=== PATIENT | female | born 1935 | race Two or more races ===

== ENCOUNTER 2020-08-07 02:31 | Inpatient (IN) | payer OTHER ==
[~2020-08-07] VITALS: Ht 157.5 cm; Wt 85.0 kg
[2020-08-07] MEDS ORDERED: dilTIAZem 25 MG/5 ML VIAL IV ONE (02:45)
[2020-08-07 03:19] LABS: Basophils # (auto) 0 10 ^3/uL (0-0.2); Basophils % (auto) 0.3 % (0.0-2.0); Eosinophils # (auto) 0.3 10 ^3/uL (0-0.8); Eosinophils % (auto) 2.9 % (0.0-7.0); Hematocrit 47.2 % (36.0-46.0); Lymphocytes # (auto) 2.2 10 ^3/uL (0.4-5.4); Lymphocytes % (auto) 25.4 % (10.0-50.0); Mean Corpuscular Hgb Conc. 33.8 g/dL (32.0-36.0); Mean Corpuscular Volume 88.6 fL (80.0-100.0); Monocytes # (auto) 0.7 10 ^3/uL (0-1.3); Monocytes % (auto) 7.5 % (0.0-12.0); Neutrophils # (auto) 5.5 10 ^3/uL (1.6-8.6); Neutrophils % (auto) 63.9 % (37.0-80.0); Nucleated Red Blood Cells % 0.4 %; Platelet Count (auto) 204 10^3/uL (140-450); Red Blood Cells 5.33 10^6/uL (4.0-5.20); Red Cell Distribution Width 13.6 % (11.8-14.3); White Blood Cell 8.6 10^3/uL (4.4-10.8)
[2020-08-07 03:35] LABS: Albumin 3.5 g/dL (3.4-5.0); Calcium 8.9 mg/dL (8.5-10.1); Potassium 3.6 mmol/L (3.5-5.1)
[2020-08-07 03:41] LABS: BUN/Creatinine Ratio 33.3; Bilirubin, Total 0.7 mg/dL (0.2-1.0); Total Protein 6.4 g/dL (6.4-8.2)
[2020-08-07 03:43] LABS: INR 1.13 (0.9-1.15); Partial Thromboplastin Time 28.3 sec (23.0-31.2)
[2020-08-07] MEDS ORDERED: ACETAMINOPHEN 325 MG TAB PO ONE (04:00)
[2020-08-07] MEDS ORDERED: SUCRALFATE 1 GM/10 ML ORAL SUSP PO ONE (04:00)
[2020-08-07] MEDS ORDERED: ENOXAPARIN SOD 100 MG/1 ML SYRINGE SC ONE (07:30)
[2020-08-07] MEDS ORDERED: FUROSEMIDE 20 MG/2 ML VIAL IV ONE (08:30)
[2020-08-07] MEDS ORDERED: ADENOSINE 65 MG in GIVE UN-DILUTED 0 ML IV STA (08:42)
[2020-08-07] MEDS ORDERED: POTASSIUM EFFERVESENT TAB 25 MEQ PO ONE (08:45)
[2020-08-07 09:11] LABS: Magnesium 1.9 mg/dL (1.6-2.6)
[2020-08-07] MEDS ORDERED: DEXTROSE (50%) 50ML SYRG IV PRN ×2 (10:30→12:00)
[2020-08-07] MEDS ORDERED: ACETAMINOPHEN 500 MG TAB PO PRN (10:30)
[2020-08-07] MEDS ORDERED: HYDROcodone-ACET 5/325MG TAB PO PRN (10:30)
[2020-08-07] MEDS ORDERED: MORPHINE SULF INJ 2 MG/ML SYRINGE 1ML IV PRN ×2 (10:30)
[2020-08-07] MEDS ORDERED: ACCU-CHEK COMFORT CURVE STRIP VI SCH (11:30)
[2020-08-07] MEDS ORDERED: InsuLIN REG 1unit/0.01ml Soln (100units/ml) SC SCH (11:30)
[2020-08-07] MEDS ORDERED: DIGOXIN (250MCG/ML) 2 ML AMPULE IV ONE (11:45)
[2020-08-07] MEDS ORDERED: MAGNESIUM SULFATE 1GM/100ML 100 ML IV ONE (13:45)
[2020-08-07] MEDS ORDERED: AMIODARONE HCL 200 MG TAB PO ONE (13:45)
[2020-08-07 14:00] VITALS: BP 125/61
[2020-08-07] MEDS: metroNIDAZOLE 500 MG TAB PO SCH ×2 (15:08→21:20)
[2020-08-07 15:39] VITALS: BP 125/61
[2020-08-07 16:56] VITALS: BP 122/60
[2020-08-07] MEDS: ACCU-CHEK COMFORT CURVE STRIP VI SCH ×2 (17:51→22:04)
[2020-08-07] MEDS: InsuLIN REG 1unit/0.01ml Soln (100units/ml) SC SCH ×2 (17:59→22:03)
[2020-08-07] MEDS: AMIODARONE HCL 200 MG TAB PO SCH (21:20)
[2020-08-07] MEDS: METOPROLOL TARTRATE 50 MG TAB PO SCH (21:35)
[2020-08-07 22:00] VITALS: BP 144/64
[2020-08-08] MEDS ORDERED: INS7030I SC ×2 (02:51)
[2020-08-08] MEDS ORDERED: CLOP75TA70 PO (02:51)
[2020-08-08] MEDS ORDERED: CILO100T PO (02:51)
[2020-08-08] MEDS ORDERED: ISOS60TA24 PO (02:51)
[2020-08-08] MEDS ORDERED: METO-158 PO (02:51)
[2020-08-08] MEDS ORDERED: LISI-716 PO (02:51)
[2020-08-08] MEDS ORDERED: CEFP200T15 PO (02:51)
[2020-08-08] MEDS ORDERED: NITR1SPR SL (02:51)
[2020-08-08] MEDS ORDERED: ASPI-543 PO (02:51)
[2020-08-08 04:40] LABS: Urine Bacteria FEW /hpf (None Seen); Urine Blood 3+ /uL (Negative); Urine Mucus FEW (None Seen); Urine Specific Gravity 1.017 (1.001-1.035); Urine WBC 36 /hpf (0 - 5)
[2020-08-08] MEDS ORDERED: ONDA-144 PO (04:55)
[2020-08-08 05:00] VITALS: BP 154/56
[2020-08-08] MEDS: metroNIDAZOLE 500 MG TAB PO SCH ×3 (05:28→22:07)
[2020-08-08] MEDS: ACCU-CHEK COMFORT CURVE STRIP VI SCH ×4 (06:41→22:00)
[2020-08-08] MEDS: InsuLIN REG 1unit/0.01ml Soln (100units/ml) SC SCH ×4 (06:41→22:00)
[2020-08-08 08:30] VITALS: BP 143/60
[2020-08-08] MEDS: RAMIPRIL 10 MG CAP PO SCH (09:50)
[2020-08-08] MEDS: AMIODARONE HCL 200 MG TAB PO SCH ×2 (09:51→22:07)
[2020-08-08] MEDS: ASPirin-EC 81 mg tab PO SCH (09:51)
[2020-08-08] MEDS: FUROSEMIDE 40 MG TAB PO SCH (09:52)
[2020-08-08] MEDS: CLOPIDOGREL BISULFATE 75 MG TAB PO SCH (09:53)
[2020-08-08] MEDS: METOPROLOL TARTRATE 50 MG TAB PO SCH ×2 (09:53→22:00)
[2020-08-08] MEDS ORDERED: FAMOTIDINE 20 MG TAB PO SCH (10:00)
[2020-08-08] MEDS ORDERED: cefTRIAXone 1GM/50ML D5W 50 ML IV ONE (11:30)
[2020-08-08] MEDS ORDERED: PANTOPRAZOLE 40 MG/10 ML VIAL INJ IV ONE (12:00)
[2020-08-08 12:30] VITALS: BP 135/56
[2020-08-08 17:00] VITALS: BP 139/83
[2020-08-08] MEDS: SUCRALFATE 1 GM/10 ML ORAL SUSP GT SCH ×2 (17:43→22:07)
[2020-08-08] MEDS: ONDANSETRON HCL 4 MG/2 ML VIAL IV PRN (20:18)
[2020-08-08 22:00] VITALS: BP 142/62
[2020-08-08] MEDS: INSULIN 70/30 1unit/0.01ml Susp (100units/ml) SC SCH (22:00)
[2020-08-08] MEDS ORDERED: FAMOTIDINE (10MG/ML) 2ML VL IV SCH (22:00)
[2020-08-08] MEDS ORDERED: LOPERAMIDE 1 mg/7.5ml ORAL soln PO PRN (23:30)
[2020-08-08] MEDS: LOPERAMIDE HCL 2 MG CAP PO PRN (23:50)
[2020-08-09] VITALS (16 sets, daily range): BP systolic 136–178; BP diastolic 41–62
[2020-08-09] MEDS: LOPERAMIDE HCL 2 MG CAP PO PRN (01:50)
[2020-08-09] MEDS: metroNIDAZOLE 500 MG TAB PO SCH (06:00)
[2020-08-09] MEDS: InsuLIN REG 1unit/0.01ml Soln (100units/ml) SC SCH ×4 (06:32→22:00)
[2020-08-09] MEDS: ACCU-CHEK COMFORT CURVE STRIP VI SCH ×4 (06:32→22:15)
[2020-08-09] MEDS: SUCRALFATE 1 GM/10 ML ORAL SUSP GT SCH ×2 (06:32→11:30)
[2020-08-09] MEDS: METOPROLOL TARTRATE 50 MG TAB PO SCH ×2 (09:28→22:13)
[2020-08-09] MEDS: CLOPIDOGREL BISULFATE 75 MG TAB PO SCH (09:28)
[2020-08-09] MEDS: AMIODARONE HCL 200 MG TAB PO SCH ×2 (09:28→22:13)
[2020-08-09] MEDS: ASPirin-EC 81 mg tab PO SCH (09:29)
[2020-08-09] MEDS: PANTOPRAZOLE 40 MG/10 ML VIAL INJ IV SCH (09:29)
[2020-08-09] MEDS: cefTRIAXone 1GM/50ML D5W 50 ML IV SCH (09:30)
[2020-08-09] MEDS: RAMIPRIL 10 MG CAP PO SCH (09:30)
[2020-08-09] MEDS: FUROSEMIDE 40 MG TAB PO SCH (09:30)
[2020-08-09] MEDS: INSULIN 70/30 1unit/0.01ml Susp (100units/ml) SC SCH ×2 (09:31→22:00)
[2020-08-09] MEDS ORDERED: LIDOCAINE 2%HCL (LOCAL ANESTH.) INJ 20ML MDV ONE ×2 (15:21→15:45)
[2020-08-09] MEDS ORDERED: ANGIOMAX 250 MG VIAL IV ONE ×3 (15:22→18:39)
[2020-08-09] MEDS ORDERED: MIDAZOLAM HCL 1MG/1ML-2 ML VIAL ONE ×2 (15:22→18:22)
[2020-08-09] MEDS ORDERED: SODIUM CHL 0.9% 50 ML ONE ×3 (15:22→18:39)
[2020-08-09] MEDS ORDERED: fentaNYL CITRATE 100 MCG/2 ML VL ONE (15:22)
[2020-08-09] MEDS ORDERED: ATROPINE SULF 1 MG/10ml SYR ONE (16:22)
[2020-08-09] MEDS ORDERED: IODIXANOL 320MG/ML 100ML BTL IV ONE ×2 (16:26→18:03)
[2020-08-09] MEDS: ATORVASTATIN 20 MG TAB PO SCH (22:14)
[2020-08-10] VITALS (33 sets, daily range): BP systolic 99–154; BP diastolic 35–67
[2020-08-10] MEDS: NITROGLYCERIN 0.4 MG SL TAB SL PRN ×2 (02:23→02:29)
[2020-08-10] MEDS: ONDANSETRON HCL 4 MG/2 ML VIAL IV PRN ×2 (02:50→15:27)
[2020-08-10 05:05] LABS: Basophils # (auto) 0 10 ^3/uL (0-0.2); Basophils % (auto) 0.3 % (0.0-2.0); Eosinophils # (auto) 0 10 ^3/uL (0-0.8); Eosinophils % (auto) 0.1 % (0.0-7.0); Hematocrit 42.8 % (36.0-46.0); Hemoglobin 14.6 g/dL (12.2-16.2); Lymphocytes # (auto) 0.9 10 ^3/uL (0.4-5.4); Lymphocytes % (auto) 7.8 % (10.0-50.0); Mean Corpuscular Hemoglobin 30.1 pg (28.0-32.0); Mean Corpuscular Volume 88.6 fL (80.0-100.0); Monocytes # (auto) 0.6 10 ^3/uL (0-1.3); Monocytes % (auto) 5.5 % (0.0-12.0); Neutrophils # (auto) 9.6 10 ^3/uL (1.6-8.6); Neutrophils % (auto) 86.3 % (37.0-80.0); Platelet Count (auto) 182 10^3/uL (140-450); Red Blood Cells 4.83 10^6/uL (4.0-5.20); Red Cell Distribution Width 13.9 % (11.8-14.3); White Blood Cell 11.1 10^3/uL (4.4-10.8)
[2020-08-10 05:25] LABS: Calcium 8.7 mg/dL (8.5-10.1)
[2020-08-10 05:29] LABS: BUN/Creatinine Ratio 48.5
[2020-08-10] MEDS: metroNIDAZOLE 500 MG TAB PO SCH ×3 (06:24→22:29)
[2020-08-10] MEDS: ACCU-CHEK COMFORT CURVE STRIP VI SCH ×4 (06:25→22:30)
[2020-08-10] MEDS: SUCRALFATE 1 GM/10 ML ORAL SUSP GT SCH ×4 (06:25→22:28)
[2020-08-10] MEDS: InsuLIN REG 1unit/0.01ml Soln (100units/ml) SC SCH ×4 (06:28→22:26)
[2020-08-10] MEDS: cefTRIAXone 1GM/50ML D5W 50 ML IV SCH (09:40)
[2020-08-10] MEDS: RAMIPRIL 10 MG CAP PO SCH (09:51)
[2020-08-10] MEDS: AMIODARONE HCL 200 MG TAB PO SCH ×2 (09:52→22:29)
[2020-08-10] MEDS: ASPirin-EC 81 mg tab PO SCH (09:56)
[2020-08-10] MEDS: FUROSEMIDE 40 MG TAB PO SCH (09:56)
[2020-08-10] MEDS: FLORASTOR (S. BOULARDII) 250 MG CAP PO SCH (09:56)
[2020-08-10] MEDS: METOPROLOL TARTRATE 50 MG TAB PO SCH ×2 (09:57→22:30)
[2020-08-10] MEDS: PANTOPRAZOLE 40 MG/10 ML VIAL INJ IV SCH (09:57)
[2020-08-10] MEDS: CLOPIDOGREL BISULFATE 75 MG TAB PO SCH (09:57)
[2020-08-10] MEDS: INSULIN 70/30 1unit/0.01ml Susp (100units/ml) SC SCH ×2 (10:30→22:27)
[2020-08-10] MEDS ORDERED: SODIUM CHLORIDE 0.9% 1,000 ML IV SCH (10:45)
[2020-08-10] MEDS: SODIUM CHLORIDE 0.9% 1,000 ML IV SCH ×2 (11:50→22:31)
[2020-08-10] MEDS ORDERED: GASTROGRAFIN 120 ML SOL ONE (14:11)
[2020-08-10] MEDS: ATORVASTATIN 20 MG TAB PO SCH (22:29)
[2020-08-11 05:05] VITALS: BP 149/70
[2020-08-11] MEDS: ACCU-CHEK COMFORT CURVE STRIP VI SCH ×3 (06:13→17:25)
[2020-08-11] MEDS: InsuLIN REG 1unit/0.01ml Soln (100units/ml) SC SCH ×3 (06:13→17:26)
[2020-08-11] MEDS: metroNIDAZOLE 500 MG TAB PO SCH ×2 (06:50→17:25)
[2020-08-11] MEDS: SUCRALFATE 1 GM/10 ML ORAL SUSP GT SCH ×3 (06:51→17:25)
[2020-08-11] MEDS: cefTRIAXone 1GM/50ML D5W 50 ML IV SCH (08:04)
[2020-08-11] MEDS: SODIUM CHLORIDE 0.9% 1,000 ML IV SCH (08:04)
[2020-08-11] MEDS: PANTOPRAZOLE 40 MG/10 ML VIAL INJ IV SCH (08:05)
[2020-08-11] MEDS: FUROSEMIDE 40 MG TAB PO SCH (08:06)
[2020-08-11] MEDS: RAMIPRIL 10 MG CAP PO SCH (08:06)
[2020-08-11] MEDS: FLORASTOR (S. BOULARDII) 250 MG CAP PO SCH (08:06)
[2020-08-11] MEDS: ASPirin-EC 81 mg tab PO SCH (08:06)
[2020-08-11] MEDS: AMIODARONE HCL 200 MG TAB PO SCH (08:06)
[2020-08-11] MEDS: CLOPIDOGREL BISULFATE 75 MG TAB PO SCH (08:07)
[2020-08-11] MEDS: METOPROLOL TARTRATE 50 MG TAB PO SCH (08:07)
[2020-08-11] MEDS ORDERED: DIGOXIN (250MCG/ML) 2 ML AMPULE IV ONE (08:30)
[2020-08-11 09:00] VITALS: BP 134/60
[2020-08-11 10:07] LABS: Basophils # (auto) 0 10 ^3/uL (0-0.2); Basophils % (auto) 0.4 % (0.0-2.0); Eosinophils # (auto) 0 10 ^3/uL (0-0.8); Eosinophils % (auto) 0.4 % (0.0-7.0); Hematocrit 42.6 % (36.0-46.0); Hemoglobin 14.6 g/dL (12.2-16.2); Lymphocytes # (auto) 1.3 10 ^3/uL (0.4-5.4); Lymphocytes % (auto) 12.4 % (10.0-50.0); Mean Corpuscular Hemoglobin 30.1 pg (28.0-32.0); Mean Corpuscular Hgb Conc. 34.3 g/dL (32.0-36.0); Monocytes # (auto) 0.8 10 ^3/uL (0-1.3); Monocytes % (auto) 7.6 % (0.0-12.0); Neutrophils # (auto) 8.4 10 ^3/uL (1.6-8.6); Neutrophils % (auto) 79.2 % (37.0-80.0); Nucleated Red Blood Cells % 0.1 %; Platelet Count (auto) 197 10^3/uL (140-450); Red Blood Cells 4.85 10^6/uL (4.0-5.20); Red Cell Distribution Width 13.7 % (11.8-14.3); White Blood Cell 10.6 10^3/uL (4.4-10.8)
[2020-08-11 10:23] LABS: BUN/Creatinine Ratio 38.9; Calcium 8.9 mg/dL (8.5-10.1)
[2020-08-11] MEDS ORDERED: SODIUM CHLORIDE 0.9% 1,000 ML IV SCH (11:45)
[2020-08-11 13:00] VITALS: BP 107/68
[2020-08-11] MEDS: INSULIN 70/30 1unit/0.01ml Susp (100units/ml) SC SCH (13:30)
[2020-08-11 14:59] VITALS: BP 113/66
[2020-08-11 21:22] VITALS: BP 129/77
== END 2020-08-11 21:22 | disposition short-term general hospital (02) | DRG 246 ==
LOC: EDBD 02:31 → ER 02:34 → TELE 10:23 → TELE-CENTR 13:46 → DOU IN ICU 08-09 20:50 → TELE-CENTR 08-10 15:12
PROVIDERS: ADMIT Nurse Practitioner Acute Care; ATTEND Internal Medicine
PROC: 027036Z Dilation of Coronary Artery, One Artery with Three Drug-eluting Intraluminal Devices, Percutaneous Approach (ICD-10-PCS; principal; 2020-08-09)
PROC: B2111ZZ Fluoroscopy of Multiple Coronary Arteries using Low Osmolar Contrast (ICD-10-PCS; 2020-08-09)
PROC: B2151ZZ Fluoroscopy of Left Heart using Low Osmolar Contrast (ICD-10-PCS; 2020-08-09)
PROC: 4A033BC Measurement of Arterial Pressure, Coronary, Percutaneous Approach (ICD-10-PCS; 2020-08-09)
PROC: 4A023N8 Measurement of Cardiac Sampling and Pressure, Bilateral, Percutaneous Approach (ICD-10-PCS; 2020-08-09)
DX: I21.4 Non-ST elevation (NSTEMI) myocardial infarction (principal); I50.31 Acute diastolic (congestive) heart failure; K57.92 Diverticulitis of intestine, part unspecified, without perforation or abscess without bleeding; I13.0 Hypertensive heart and chronic kidney disease with heart failure and stage 1 through stage 4 chronic kidney disease, or unspecified chronic kidney disease; N39.0 Urinary tract infection, site not specified; I25.10 Atherosclerotic heart disease of native coronary artery without angina pectoris; E66.9 Obesity, unspecified; I48.0 Paroxysmal atrial fibrillation; E11.51 Type 2 diabetes mellitus with diabetic peripheral angiopathy without gangrene; Z20.822 Contact with and (suspected) exposure to COVID-19; N18.9 Chronic kidney disease, unspecified; E11.22 Type 2 diabetes mellitus with diabetic chronic kidney disease; E78.5 Hyperlipidemia, unspecified; K21.9 Gastro-esophageal reflux disease without esophagitis; I35.0 Nonrheumatic aortic (valve) stenosis; Z68.33 Body mass index [BMI] 33.0-33.9, adult; Z79.4 Long term (current) use of insulin
CPT/HCPCS: 36415; 71045; 74220; 80048; 80053; 80061; 81001; 82962; 83036; 83735; 83880; 84443; 84484; 85025; 85610; 85730; 87081; 87086; 87426; 87493; 92928; 92929; 93005; 93306; 93460; 93571; 96365; 96372; 96375; C1751; C1887; C9113; G0378; J0153; J0696; J1815; J2250; J2405; Q9967

== ENCOUNTER 2023-11-16 08:42 | Inpatient (IN) | payer OTHER ==
[~2023-11-16] VITALS: Ht 149.9 cm; Wt 88.2 kg
[~2023-11-16 08:42] MED LIST: ASPI-543 PO; CEFP200T15 PO; CILO100T3 PO; CLOP75TA70 PO; INS7030I SC; ISOS1TAB29 PO; LISI10TA34 PO; METO-158 PO; NITR1SPR SL; ONDA-144 PO
[2023-11-16 09:28] LABS: Basophils # (auto) 0.1 10 ^3/uL (0-0.2); Basophils % (auto) 1.1 % (0.0-2.0); Eosinophils # (auto) 0.1 10 ^3/uL (0-0.8); Lymphocytes # (auto) 1.9 10 ^3/uL (0.4-5.4); Lymphocytes % (auto) 24.6 % (10.0-50.0); Monocytes # (auto) 0.7 10 ^3/uL (0-1.3); Neutrophils # (auto) 4.9 10 ^3/uL (1.6-8.6)
[2023-11-16 09:34] LABS: Eosinophils % (auto) 1.9 % (0.0-7.0); Hematocrit 29.4 % (36.0-46.0); Hemoglobin 9.6 g/dL (12.2-16.2); Mean Corpuscular Hemoglobin 26.3 pg (28.0-32.0); Mean Corpuscular Hgb Conc. 32.8 g/dL (32.0-36.0); Mean Corpuscular Volume 80.3 fL (80.0-100.0); Monocytes % (auto) 8.6 % (0.0-12.0); Neutrophils % (auto) 63.8 % (37.0-80.0); Nucleated Red Blood Cells % 0.1 %; Platelet Count (auto) 259 10^3/uL (140-450); Red Blood Cells 3.66 10^6/uL (4.0-5.20); Red Cell Distribution Width 14.8 % (11.8-14.3); White Blood Cell 7.7 10^3/uL (4.4-10.8)
[2023-11-16] MEDS: ONDANSETRON HCL 4 MG/2 ML VIAL IV ONE ×2 (10:00→14:37)
[2023-11-16] MEDS: MORPHINE SULFATE 4 MG/ML SYR/VIAL IV ONE ×2 (10:00→13:44)
[2023-11-16] MEDS: NITROGLYCERIN 0.4 MG SL TAB SL ONE (10:00)
[2023-11-16 10:17] LABS: Chloride 102 mmol/L (98-107); Potassium 3.7 mmol/L (3.5-5.1); Sodium 135 mmol/L (136-145)
[2023-11-16 10:18] LABS: Anion Gap 5 (5-15); Calcium 9.6 mg/dL (8.7-10.4); Carbon Dioxide 28 mmol/L (20-30)
[2023-11-16 10:23] LABS: Blood Urea Nitrogen 22 mg/dL (9-23); Glucose 257 mg/dL (74-106)
[2023-11-16] MEDS ORDERED: DEXTROSE (50%) 50ML SYRG IV PRN (13:00)
[2023-11-16] MEDS ORDERED: FUROSEMIDE 40 MG/4 ML VIAL IV SCH (15:00)
[2023-11-16] MEDS ORDERED: HYDROmorphone HCL 2 MG/ML VL/or syr IV PRN (15:15)
[2023-11-16] MEDS ORDERED: DOCUSATE SOD 100 MG CAP PO PRN (15:15)
[2023-11-16] MEDS ORDERED: HYDROcodone-ACET 5/325MG TAB PO PRN (15:15)
[2023-11-16] MEDS ORDERED: ACETAMINOPHEN 325 MG TAB PO PRN (15:15)
[2023-11-16] MEDS: ACCU-CHEK COMFORT CURVE STRIP VI SCH (17:17)
[2023-11-16] MEDS: InsuLIN REG 1unit/0.01ml Soln (100units/ml) SC SCH (17:38)
[2023-11-16] MEDS: INSULIN 70/30 1unit/0.01ml Susp (100units/ml) SC SCH (17:39)
[2023-11-16 17:59] LABS: Urine Bacteria FEW /hpf (None Seen); Urine Blood Negative /uL (Negative); Urine Clarity Clear (Clear); Urine Color Light-Yellow (Yellow); Urine Protein, UAD Negative (Negative); Urine Specific Gravity 1.024 (1.001-1.035); Urine Urobilinogen Normal (Negative); Urine WBC <1 /hpf (0 - 5)
[2023-11-16 19:30] VITALS: PULSE 70; RESP 12; O2SAT 99
[2023-11-16] MEDS: ALBUMIN 5% 250 ML IV ONE (21:49)
[2023-11-16] MEDS: METOPROLOL TARTRATE 50 MG TAB PO SCH (22:00)
[2023-11-16] MEDS: CILOSTAZOL 100 MG TAB PO SCH (22:00)
[2023-11-16] MEDS: SODIUM CHLOR 0.9% PF (SALINE LOCK) 10ML VIAL/SYR IV SCH (22:18)
[2023-11-17] VITALS (9 sets, daily range): BP systolic 90–128; BP diastolic 30–53; PULSE 64–82; RESP 17–21; TEMP 97.3–98.4; O2SAT 93–99
[2023-11-17 06:10] LABS: Basophils # (auto) 0.1 10 ^3/uL (0-0.2); Basophils % (auto) 0.9 % (0.0-2.0); Eosinophils # (auto) 0.3 10 ^3/uL (0-0.8); Hemoglobin 9.3 g/dL (12.2-16.2); Monocytes # (auto) 0.8 10 ^3/uL (0-1.3); Nucleated Red Blood Cells % 0.1 %
[2023-11-17 06:14] LABS: Eosinophils % (auto) 3.3 % (0.0-7.0); Hematocrit 28.3 % (36.0-46.0); Lymphocytes # (auto) 2.4 10 ^3/uL (0.4-5.4); Lymphocytes % (auto) 30.1 % (10.0-50.0); Mean Corpuscular Hemoglobin 26.7 pg (28.0-32.0); Mean Corpuscular Hgb Conc. 33.1 g/dL (32.0-36.0); Mean Corpuscular Volume 80.6 fL (80.0-100.0); Monocytes % (auto) 9.3 % (0.0-12.0); Neutrophils # (auto) 4.6 10 ^3/uL (1.6-8.6); Neutrophils % (auto) 56.4 % (37.0-80.0); Platelet Count (auto) 245 10^3/uL (140-450); Red Cell Distribution Width 15.2 % (11.8-14.3); White Blood Cell 8.1 10^3/uL (4.4-10.8)
[2023-11-17 06:31] LABS: Alanine Aminotransferase 14 U/L (7-40); Albumin 3.5 g/dL (3.2-4.8); Alkaline Phosphatase 66 U/L (46-116); Anion Gap 5 (5-15); Blood Urea Nitrogen 17 mg/dL (9-23); Calcium 9.5 mg/dL (8.7-10.4); Carbon Dioxide 28 mmol/L (20-30); Chloride 104 mmol/L (98-107); Potassium 3.6 mmol/L (3.5-5.1); Sodium 137 mmol/L (136-145)
[2023-11-17 06:33] LABS: Aspartate Aminotransferase 17 U/L (13-40); Bilirubin, Total 0.8 mg/dL (0.2-1.0); Total Protein 5.8 g/dL (5.7-8.2)
[2023-11-17 06:42] LABS: Glucose 192 mg/dL (74-106)
[2023-11-17] MEDS: ASPirin-EC 81 mg tab PO SCH (09:00)
[2023-11-17] MEDS: CLOPIDOGREL BISULFATE 75 MG TAB PO SCH (09:00)
[2023-11-17] MEDS: LISINOPRIL 5 MG TAB PO SCH (09:01)
[2023-11-17] MEDS: ISOSORBIDE MONONITRATE ER 60 MG TAB PO SCH (09:01)
[2023-11-17] MEDS: INSULIN 70/30 1unit/0.01ml Susp (100units/ml) SC SCH (09:07)
[2023-11-17] MEDS: ENOXAPARIN SOD 40 MG/0.4 ML SYRINGE SC SCH (10:00)
[2023-11-17] MEDS ORDERED: DEXTROSE (50%) 50ML SYRG IV PRN (13:00)
[2023-11-17] MEDS: ACCU-CHEK COMFORT CURVE STRIP VI SCH (17:40)
[2023-11-17] MEDS: InsuLIN REG 1unit/0.01ml Soln (100units/ml) SC SCH ×2 (17:41→21:24)
[2023-11-17] MEDS: ONDANSETRON HCL 4 MG/2 ML VIAL IV PRN (21:07)
[2023-11-17] MEDS: INSULIN LANTUS (GLARGINE) 1 /0.01ml (100units/ml) SC SCH (21:25)
[2023-11-17] MEDS ORDERED: ATORVASTATIN 20 MG TAB PO SCH (22:00)
[2023-11-17] MEDS: MORPHINE SULFATE INJ 2 MG/ml SYRG IV PRN (22:24)
[2023-11-17] MEDS: CALCIUM CARB 500 MG CHEW TAB PO ONE (23:39)
[2023-11-18] VITALS (35 sets, daily range): BP systolic 81–141; BP diastolic 24–48; PULSE 58–96; RESP 12–21; TEMP 97.6–99.9; O2SAT 85–100
[2023-11-18] MEDS: NITROGLYCERIN 0.4 MG SL TAB SL PRN (02:53)
[2023-11-18] MEDS: CALCIUM CARB 500 MG CHEW TAB PO PRN (05:42)
[2023-11-18 06:19] LABS: Eosinophils # (auto) 0.2 10 ^3/uL (0-0.8); Mean Corpuscular Volume 80.1 fL (80.0-100.0); Monocytes # (auto) 0.8 10 ^3/uL (0-1.3); Nucleated Red Blood Cells % 0.1 %; Red Blood Cells 3.47 10^6/uL (4.0-5.20); White Blood Cell 11.1 10^3/uL (4.4-10.8)
[2023-11-18 06:22] LABS: Basophils # (auto) 0 10 ^3/uL (0-0.2); Basophils % (auto) 0.4 % (0.0-2.0); Eosinophils % (auto) 1.4 % (0.0-7.0); Hematocrit 27.8 % (36.0-46.0); Hemoglobin 8.9 g/dL (12.2-16.2); Lymphocytes # (auto) 2.8 10 ^3/uL (0.4-5.4); Lymphocytes % (auto) 25.6 % (10.0-50.0); Mean Corpuscular Hemoglobin 25.8 pg (28.0-32.0); Mean Corpuscular Hgb Conc. 32.2 g/dL (32.0-36.0); Monocytes % (auto) 6.8 % (0.0-12.0); Neutrophils # (auto) 7.3 10 ^3/uL (1.6-8.6); Neutrophils % (auto) 65.8 % (37.0-80.0); Platelet Count (auto) 276 10^3/uL (140-450); Red Cell Distribution Width 14.9 % (11.8-14.3)
[2023-11-18 06:35] LABS: Alanine Aminotransferase 17 U/L (7-40); Albumin 3.8 g/dL (3.2-4.8); Alkaline Phosphatase 71 U/L (46-116); Anion Gap 5 (5-15); Aspartate Aminotransferase 20 U/L (13-40); BUN/Creatinine Ratio 18.5 (10.0-20.0); Bilirubin, Total 0.9 mg/dL (0.2-1.0); Blood Urea Nitrogen 15 mg/dL (9-23); Calcium 9.8 mg/dL (8.7-10.4); Carbon Dioxide 28 mmol/L (20-30); Chloride 100 mmol/L (98-107); Glucose 226 mg/dL (74-106); Potassium 4.1 mmol/L (3.5-5.1); Sodium 133 mmol/L (136-145); Total Protein 6.2 g/dL (5.7-8.2)
[2023-11-18] MEDS: HEPARIN SODIUM (PORCINE) 5000 UNITS/ML 1ML VIAL ONE (08:01)
[2023-11-18] MEDS: ANGIOMAX 250 MG VIAL IV ONE ×2 (08:01→09:41)
[2023-11-18] MEDS: fentaNYL CITRATE 100 MCG/2 ML VL ONE (08:01)
[2023-11-18] MEDS: VERAPAMIL 2.5MG/ML INJ 2ML VIAL IV ONE (08:01)
[2023-11-18] MEDS: MIDAZOLAM HCL 2MG/2ML 2ml VIAL (1mg/ml) ONE (08:02)
[2023-11-18] MEDS: HEPARIN IN NS 1000Units/500mL 1,500 ML ONE (08:02)
[2023-11-18] MEDS: SODIUM CHL 0.9% 50 ML ONE ×2 (08:02→09:41)
[2023-11-18] MEDS: NITROGLYCERIN 50MG/250ML 250 ML IV ONE (08:02)
[2023-11-18] MEDS: LIDOCAINE 2%HCL (LOCAL ANESTH.) INJ 20ML MDV ONE (08:02)
[2023-11-18] MEDS: IODIXANOL 320MG/ML 100ML BTL IV ONE ×2 (08:09→09:45)
[2023-11-18] MEDS: ATROPINE SULF 1 MG/10ml SYR ONE (09:07)
[2023-11-18] MEDS: PHENYLEPHRINE HCL 10 MG/ML VL ONE (09:09)
[2023-11-18] MEDS: PHENYLEPHRINE IV 250 ML IV ONE (09:09)
[2023-11-18] MEDS: HYDROmorphone HCL 2 MG/ML VL/or syr ONE (09:32)
[2023-11-18] MEDS: PHENYLEPHRINE IV 250 ML IV SCH (10:30)
[2023-11-19] VITALS (11 sets, daily range): BP systolic 97–135; BP diastolic 21–85; PULSE 61–80; RESP 17–20; TEMP 97.8–98.6; O2SAT 92–99
[2023-11-19 06:57] LABS: Basophils # (auto) 0 10 ^3/uL (0-0.2); Basophils % (auto) 0.3 % (0.0-2.0); Eosinophils # (auto) 0 10 ^3/uL (0-0.8); Eosinophils % (auto) 0.2 % (0.0-7.0); Hematocrit 25.9 % (36.0-46.0); Hemoglobin 8.2 g/dL (12.2-16.2); Lymphocytes # (auto) 0.8 10 ^3/uL (0.4-5.4); Lymphocytes % (auto) 6.7 % (10.0-50.0); Mean Corpuscular Hemoglobin 25.4 pg (28.0-32.0); Mean Corpuscular Hgb Conc. 31.8 g/dL (32.0-36.0); Mean Corpuscular Volume 79.7 fL (80.0-100.0); Monocytes % (auto) 8.5 % (0.0-12.0); Neutrophils # (auto) 9.9 10 ^3/uL (1.6-8.6); Neutrophils % (auto) 84.3 % (37.0-80.0); Platelet Count (auto) 248 10^3/uL (140-450); Red Blood Cells 3.25 10^6/uL (4.0-5.20); Red Cell Distribution Width 15.4 % (11.8-14.3); White Blood Cell 11.8 10^3/uL (4.4-10.8)
[2023-11-19 07:42] LABS: Alanine Aminotransferase 17 U/L (7-40); Alkaline Phosphatase 69 U/L (46-116); Anion Gap 3 (5-15); BUN/Creatinine Ratio 22.8 (10.0-20.0); Calcium 9.8 mg/dL (8.7-10.4); Carbon Dioxide 26 mmol/L (20-30); Chloride 103 mmol/L (98-107); Glucose 273 mg/dL (74-106); Potassium 4.9 mmol/L (3.5-5.1); Sodium 132 mmol/L (136-145)
[2023-11-19 07:44] LABS: Albumin 3.3 g/dL (3.2-4.8); Aspartate Aminotransferase 21 U/L (13-40); Bilirubin, Total 0.8 mg/dL (0.2-1.0); Blood Urea Nitrogen 26 mg/dL (9-23); Total Protein 5.6 g/dL (5.7-8.2)
== END 2023-11-19 22:37 | disposition short-term general hospital (02) | DRG 321 ==
LOC: ER 08:42 → EDBD 08:42 → ER 15:04 → TELE 15:04 → TELE-EAST 11-17 05:49
PROVIDERS: ADMIT Internal Medicine Pulmonary Disease; ATTEND Internal Medicine Pulmonary Disease
PROC: 027036Z Dilation of Coronary Artery, One Artery with Three Drug-eluting Intraluminal Devices, Percutaneous Approach (ICD-10-PCS; principal; 2023-11-18)
PROC: 4A023N7 Measurement of Cardiac Sampling and Pressure, Left Heart, Percutaneous Approach (ICD-10-PCS; 2023-11-18)
PROC: B211YZZ Fluoroscopy of Multiple Coronary Arteries using Other Contrast (ICD-10-PCS; 2023-11-18)
PROC: B215YZZ Fluoroscopy of Left Heart using Other Contrast (ICD-10-PCS; 2023-11-18)
PROC: 02C03ZZ Extirpation of Matter from Coronary Artery, One Artery, Percutaneous Approach (ICD-10-PCS; 2023-11-18)
DX: T82.855A Stenosis of coronary artery stent, initial encounter (principal); I21.A1 Myocardial infarction type 2; I50.33 Acute on chronic diastolic (congestive) heart failure; F03.90 Unspecified dementia, unspecified severity, without behavioral disturbance, psychotic disturbance, mood disturbance, and anxiety; I11.0 Hypertensive heart disease with heart failure; I48.91 Unspecified atrial fibrillation; E11.9 Type 2 diabetes mellitus without complications; K21.9 Gastro-esophageal reflux disease without esophagitis; D64.9 Anemia, unspecified; Z88.2 Allergy status to sulfonamides; Z88.8 Allergy status to other drugs, medicaments and biological substances; Z91.040 Latex allergy status; I35.0 Nonrheumatic aortic (valve) stenosis; Z79.01 Long term (current) use of anticoagulants; Z88.0 Allergy status to penicillin
CPT/HCPCS: 36415; 71045; 76856; 80048; 80053; 81001; 82962; 83880; 84484; 85025; 92941; 93005; 93306; 93458; 96365; 96375; 99152; 99291; G0378; J1815; J2250; J2405; Q9967